=== PATIENT | male | born 1960 | race Caucasian/White ===

== ENCOUNTER 2017-03-15 12:39 | Emergency (ER) | payer OTHER ==
[2017-05-15] MEDS ORDERED: MILK OF MA400 MG/5 M PO (09:22)
[2017-05-15] MEDS ORDERED: PERCOCET 5/3251 TAB PO (09:23)
[2017-05-15] MEDS ORDERED: SENOKOT-S TABL1 EACH PO (09:25)
[2017-05-15] MEDS ORDERED: XARELTO10 MG PO (09:25)
== END 2017-03-15 14:57 | disposition home or self-care (01) ==
LOC: FER 12:39
DX: M25.551 Pain in right hip (principal); M54.9 Dorsalgia, unspecified; R26.2 Difficulty in walking, not elsewhere classified; F17.210 Nicotine dependence, cigarettes, uncomplicated; Z87.442 Personal history of urinary calculi; Z99.89 Dependence on other enabling machines and devices
CPT/HCPCS: 99283